=== PATIENT | male | born 1970 | race African-American/Black ===

== ENCOUNTER 2017-09-15 00:03 | Emergency (ER) | payer OTHER ==
[2017-09-15] MEDS ORDERED: ASPIRIN 81 MG CHEWABLE TABLETS PO ONE (00:30)
--- NOTE | 2017-09-15 00:35 | PDOC ---
History of Present Illness <Bunny Scruggs - Last Filed: 09/15/17 01:41> - General History Source: Patient Exam Limitations: No Limitations - History of Present Illness Initial Comments: 09/15/17 01:16 The patient is a 47 year old male with past medical history of diabetes (on Metformin) and hypercholesterolemia presents to the emergency department with chest tightness for the past 2 days. The patient reports a constant pain to the left anterior chest wall starting saturday which no aggravating factor, mild relief with enoch dorie and aspirin. The patient reports the pain carried onto the Saturday, intermittent pain, with an onset of sharp pain to the mid- anterior chest wall, nonradiating, with associated numbness to the left hand, fatigue and dyspnea. The patient reports the last episode was around 11:30 pm while driving. The patient reports last echo was 1 month ago, which was normal. Denies any dyspnea on exertion or pain with deep breathing. Denies any family history of clots. Denies any swelling to the lower extremity. Denies any history of stroke or cancer. Denies any fever, chills, nausea or vomiting. Denies any heart palpitation, headache or cough. Denies any diarrhea or constipation. Denies any dysuria, hematuria, frequency or urgency to urinate. Allergies: NKDA Social history: Denies any history of smoking, alcohol or recreational drug use. Surgical history: None reported PCP: Dr. Prajapati <Sury Butterfield - Last Filed: 09/15/17 01:55> - General Chief Complaint: Chest Pain Stated Complaint: CHEST DISCOMFORT Time Seen by Provider: 09/15/17 00:19 Past History - Past Medical History COPD: No Diabetes: Yes (2) HTN: Yes - Suicide/Smoking/Psychosocial Hx Smoking History: Never smoked <Bunny Scruggs - Last Filed: 09/15/17 01:41> <Sury Butterfield - Last Filed: 09/15/17 01:55> - Past Medical History Allergies/Adverse Reactions: Allergies Allergy/AdvReac Type Severity Reaction Status Date / Time No Known Allergies Allergy Verified 09/15/17 00:24 Home Medications: Ambulatory Orders Metformin HCl 850 mg PO BID 09/15/17 Review of Systems - Review of Systems Constitutional: No: Chills, Fever, Night Sweats HEENTM: No: Nose Congestion Respiratory: Yes: Shortness of Breath. No: Cough, SOB with Exertion Cardiac (ROS): Yes: Chest Pain, Palpitations. No: Edema, Lightheadedness, Syncope ABD/GI: No: Nausea, Vomiting Neurological: No: Headache All Other Systems: Reviewed and Negative <Bunny Scruggs - Last Filed: 09/15/17 01:41> *Physical Exam - Physical Exam Comments: 09/15/17 01:18 GENERAL: The patient is awake, alert, and fully oriented, in no acute distress. HEAD: Normal with no signs of trauma. EYES: Pupils equal, round and reactive to light, extraocular movements intact, sclera anicteric, conjunctiva clear with no pallor. ENT: Ears normal, nares patent, oropharynx clear without exudates. Moist mucous membranes. NECK: Normal range of motion, supple without lymphadenopathy, JVD, or masses. LUNGS: Breath sounds equal, clear to auscultation bilaterally. No wheeze/ crackles. HEART:(+) Slight tachycardia. normal S1 and S2 without murmur or rub. ABDOMEN: Soft/nontender/nondistended. BS wnl. No guarding or rebound. No palpable masses. No hepatosplenomegaly. EXTREMITIES: No swelling or calf tenderness. Normal range of motion, no edema. No clubbing or cyanosis. No cords, erythema, or tenderness. NEUROLOGICAL: Cranial nerves II through XII grossly intact. Normal speech, normal gait. PSYCH: Normal mood, normal affect. SKIN: Warm, Dry, normal turgor, no rashes or lesions noted. <Sury Butterfield - Last Filed: 09/15/17 01:55> Heart Score/ECG Review - History History: Slightly suspicious - Electrocardiogram EKG: Normal - Age Age: 45-65 - Risk Factors Risk Factors Heart Score: Yes Hx Hypercholesterolemia, Yes Hx Diabetes Based on the list above the patient has:: 1-2 risk factors - Troponin Troponin: </= normal limit - Score Heart Score - Total: 2 #1 ECG reviewed & interpreted by me at: 00:15 General ECG Interpretation: Sinus Rhythm, Normal Rate (100), Normal Intervals ( qtc 461), No acute ischemic changes <Bunny Scruggs - Last Filed: 09/15/17 01:41> ED Treatment Course - LABORATORY CBC & Chemistry Diagram: 09/15/17 00:31 09/15/17 00:31 - RADIOLOGY Radiology Studies Ordered: Category Date Time Status CHEST PA & LAT [RAD] Stat Radiology 09/15/17 00:20 Ordered <Bunny Scruggs - Last Filed: 09/15/17 01:41> - LABORATORY CBC & Chemistry Diagram: 09/15/17 00:31 09/15/17 00:31 - ADDITIONAL ORDERS Additional order review: Laboratory Results 09/15/17 00:31 PT with INR 10.80 INR 0.96 D-Dimer < 200 09/15/17 00:31 RBC 4.83 MCV 89.7 MCHC 33.1 RDW 13.0 MPV 7.6 Neutrophils % 49.2 Lymphocytes % 37.3 Monocytes % 12.1 H Eosinophils % 1.2 Basophils % 0.2 - Medications Given in the ED: ED Medications Discontinued Medications Generic Name Dose Route Start Last Admin Trade Name Freq PRN Reason Stop Dose Admin Aspirin 162 mg 09/15/17 00:30 09/15/17 00:41 Asa - PO 09/15/17 00:31 162 mg ONCE ONE Administration <Sury Butterfield - Last Filed: 09/15/17 01:55> Medical Decision Making - Medical Decision Making 09/15/17 00:36 A portion of this note was documented by scribe services under my direction. I have reviewed the details of the note, within reason, and agree with the documentation with the following case summary and management plan written by me. 47-year-old male with history of diabetes and high cholesterol presents with chest pain for 2 days. 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 The pain is sharp, localized to the left parasternal region, associated with some shortness of breath but no nausea/diaphoresis/lightheadedness/syncope/palpitations. Never had chest pain in the past, does not have exertional limitations at baseline, is a crane operator cab for a living but has not noticed any unilateral leg swelling or pain and does not have any personal or family history of clotting disorder. Nonsmoker, no drugs, no alcohol. Never had a stress test reportedly had a normal echo 1 month ago with his PCP. Denies any GI complaints or cough/fever/chills. Vital signs normal Exam is normal including clear lungs, no edema or calf tenderness 47-year-old male with diabetes and high cholesterol with otherwise atypical chest pain which was persistent for 24 hours to days ago, and intermittent today. Would be unusual for angina given the nonexertional and persistent nature , question PE given his sedentary lifestyle, but no signs or symptoms of DVT and his vital signs are normal. Less likely infectious. Question GI. Question muscular skeletal. Labs including d-dimer EKG, chest x-ray Aspirin Reassess. Heart score is 2, patient could be candidate for outpatient stress test with his PCP Dr. Prajapati, who he can contact on Saturday. 09/15/17 01:23 labs wnl, including trop/ddimer/cxr. hyperglycemia without elevated AG. missed his metformin dose so it was given in the ED. pt feels well. Will check 2nd troponin and dispo to f/u with Dr. Prajapati [facility] for outpatient stress testing. Otherwise understands return criteria. Patient was signed out to the overnight ED physician to follow-up the results, reassess the patient, and dispo accordingly. <Bunny Scruggs - Last Filed: 09/15/17 01:41> *DC/Admit/Observation/Transfer <Bunny Scruggs - Last Filed: 09/15/17 01:41> - Attestations Scribe Attestion: 09/15/17 01:19 Documentation prepared by Sury Butterfield, acting as medical parasitologist for Bunny Scruggs MD. <Sury Butterfield - Last Filed: 09/15/17 01:55> Diagnosis at time of Disposition: Atypical chest pain - Discharge Dispostion Condition at time of disposition: Good - Referrals Referrals: Dr. Alo [Other] - Patient Instructions Printed Discharge Instructions: DI for Atypical Chest Pain Additional Instructions: Activity as tolerated. Stay hydrated. Tylenol 1000 mg every 8 hours and/or ibuprofen 600 mg every 8 hours as needed for pain. Blood tests, an EKG, and a Chest xray showed no acute abnormalities this evening. Continue your medications as previously prescribed by your physician. You were given a dose of your metformin because of slightly high sugar levels (384). You should follow up with Dr. Prajapati as soon as possible regarding today's emergency department visit. We recommend you have a cardiology evaluation as soon as possible including a stress test. Return to the emergency department for any new or concerning symptoms, particularly persistent or worsening pain, difficulty breathing, cough or fever/ chills, palpitations.
[2017-09-15] MEDS ORDERED: ASPIRIN COATED 81 MG TABLET.EC ONE (00:44)
[2017-09-15 00:46] LABS: BASO % 0.2 % (0-2.0); EOS % 1.2 % (0-4.5); HEMATOCRIT 43.3 % (35.4-49); HEMOGLOBIN 14.3 GM/dL (11.7-16.9); LYMPH % 37.3 % (8-40); MCH 29.7 pg (25.7-33.7); MCHC 33.1 g/dl (32.0-35.9); MEAN CELL VOLUME 89.7 fl (80-96); MEAN PLT VOLUME 7.6 fl (7.5-11.1); MONO % 12.1 % (3.8-10.2); NEUT % 49.2 % (42.8-82.8); PLATELET COUNT 234 K/MM3 (134-434); RBC 4.83 M/mm3 (4.00-5.60); WHITE BLOOD COUNT 5.8 K/mm3 (4.0-10.0)
[2017-09-15 01:03] LABS: INR 0.96 (0.82-1.09)
[2017-09-15 01:05] LABS: D-DIMER < 200 ng/ml (0-500)
[2017-09-15 01:15] LABS: ALBUMIN 3.4 g/dl (3.4-5.0); ALK PHOS 77 U/L (45-117); ANION GAP 9 (8-16); BILIRUBIN,TOTAL 0.3 mg/dL (0.2-1.0); BLOOD UREA NITROGEN 11 mg/dL (7-18); CALCIUM 8.4 mg/dL (8.5-10.1); CHLORIDE 105 mmol/L (98-107); CO2 25 mmol/L (21-32); POTASSIUM 3.9 mmol/L (3.5-5.1); SGOT/AST 14 U/L (15-37); SGPT/ALT 22 U/L (12-78); SODIUM 139 mmol/L (136-145); TOT PROT 6.7 g/dl (6.4-8.2)
[2017-09-15 01:18] LABS: GLUCOSE,RANDOM 384 mg/dL (74-106)
[2017-09-15 02:07] VITALS: BP 117/74; PULSE 95; TEMP 97.8; BMI 32.6
--- NOTE | 2017-09-15 10:12 | EKG ---
Test Reason : Blood Pressure : / mmHG Vent. Rate : 100 BPM Atrial Rate : 100 BPM P-R Int : 154 ms QRS Dur : 086 ms QT Int : 358 ms P-R-T Axes : 061 038 043 degrees QTc Int : 461 ms NORMAL SINUS RHYTHM NORMAL ECG NO PREVIOUS ECGS AVAILABLE Confirmed by ARETHA SON, GUICHO ([id number]) on 09/15/2017 10:11:41 AM Referred By: Confirmed By:GUICHO CARIAS MD
== END 2017-09-15 03:57 | disposition home or self-care (01) ==
LOC: JER 00:03
DX: R07.89 Other chest pain (principal); I10 Essential (primary) hypertension; E78.00 Pure hypercholesterolemia, unspecified; E11.9 Type 2 diabetes mellitus without complications; Z79.84 Long term (current) use of oral hypoglycemic drugs
CPT/HCPCS: 36415; 71046-TC-FY; 80053; 82550; 83735; 84484; 85025; 85379; 85610; 93005; 93010; 99284-25